=== PATIENT | female | born 1955 ===

== ENCOUNTER 2024-08-23 16:01 | Outpatient (REF) | payer OTHER, SELFPAY ==
--- OUTSIDE RECORDS SUMMARY | 2024-08-23 16:10 | XMS_ITS | Patient Health Record ---
Author Organization [facility] Address [address] [place] [address] Care Team Providers Care Coloring Room Man Name Role Phone SonjaRobsonFritzkelbyShania stock Primary Care Provider Vero ferrocotySurinder Weiss Unavailable [phone] Dania Quiroz Unavailable [phone] Allergies Allergen (clinical drug ingredient) Drug/Non Drug Allergy documented on EMR Reaction Allergy Type Onset Date Status Biaxin Unknown Drug Allergy Active ciprofloxacin Cipro Unknown Drug Allergy Act britta codeine Codeine Unknown Drug Allergy Active Non-steroidal anti-inflammatory agent (FN) NSAIDs Unknown Drug Allergy Active Reason For Referral No Information Medications Medication SIG (Take, Route, Frequency, Duration) Notes Start Date End Date Status traZODone HCl 50 MG 1 tablet at bedtime Orally Once a day Active Symbicort 160-4.5 MCG/ACT 2 puffs Inhala tion Twice a day Active Lisinopril 20 MG 1 tablet Orally twic e a day for 90 days Active Colace 100 MG 1 capsule as needed Orally Once a day Not-Taking Azelastine HCl 137 MCG/SPRAY 1 puff in each nostril Nasally Once a day Not-Taking Abilify 10 MG 1 tablet Orally Once a day Active Fexofenadine HCl 180 MG 1 tablet Swallow whole with water; do not take with fruit juices. Orally Once a day Not-Taking Sodium Chloride 1 GM 1 tablet Orally Twi ce a day for 90 days Active Cyclobenzaprine HCl 5 MG 1 tablet at bed time as needed Orally Once a day Not-Taking Albuterol Sulfate 108 (90 Base) MCG/ACT 1 puff as needed Inhalation every 4 hrs Active Acetaminophen 500 MG 1 capsule as needed Orally every 6 hrs prn Active Flonase Sensimist 27.5 MCG/SPRAY 1 spray in each nostril Nasally Once a day Not-Taking amLODIPine Besylate 5 MG 1 tablet Orally Once a day Active Simvastatin 40 MG 1 tablet in the evening Orally Once a day Not-Taking Ondansetron HCl 4 MG 1 tablet Orally Onc e a day PRN Active Xalatan 0.005 % 1 drop into affected eye in the evening Ophthalmic Once a day Not-Taking Triamcinolone Acetonide 0.5 % 1 application Externally Two times a Week Not-Taking Singulair 10 MG 1 tablet Orally Once a day Active Famotidine 20 MG 1 tablet Orally twic e a day Active Omeprazole 20 MG 1 capsule 30 minutes before morning meal Orally Once a day Not-Taking Depakote 500 MG 2 tablets Orally Onc e a day Active Multivitamin - 1 tablet Orally Once a day Not-Taking fluPHENAZine HCl 5 MG 1 tablet Orally Tw ice a day Active Pepcid 20 MG 1 tablet at bedtime as needed Orally Once a day Not-Taking FeroSul 325 (65 Fe) MG 1 tablet Orally O nce a day Active Pantoprazole Sodium 40 MG 1 tablet Orall y Once a day Not-Taking Lasix 20 MG 1 tablet Orally Twic e a day for 30 days Active Simethicone 80 MG 1 tablet after meals and at bedtime as needed Orally Four times a day Not-Taking Klor-Con M10 10 MEQ 1 tablet with food Orally once a day Active ProAir HFA 108 (90 Base) MCG/ACT 1 puff as needed Inhalation every 4 hrs Not-Brian stock Nystatin 020017 UNIT/GM 1 application Externally Twice a day Active Amlodipine Besylate 5 MG 1 tablet Orally Once a day Active Loratadine 10 MG 1 capsule Orally Onc e a day Not-Taking Glycerin - as directed Not-Dave ing Benztropine Mesylate 0.5 MG 1 tablet Orally Twice a day Active Miconazole Nitrate 200 MG 1 suppository at bedtime Vaginal Once a day Not-Taking Atorvastatin Calcium 40 MG 1 tablet Oral ly Once a day Active Meclizine HCl 12.5 MG 2 tablets as neede d Orally Once a day Not-Taking Social History Tobacco Use: Social History Observation Description Date Details (start date - stop date) Current Smoker NA - NA Tobacco Use/Smoking Question Answer Notes Are you a current smoker Problems Problem Type SNOMED Code ICD Code Onset Dates Problem Status W/U Status Risk Notes Problem Paranoid schizophrenia (64893421) Paranoid schizophrenia (F20.0) Active confirmed Problem Electrolytes abnormal (734763441) Electrolyte abnormality (E87.8) Active confirmed Problem Hyponatremia (96890888) Hyponatremia (E87.1) Active confirmed Problem Essential hypertension (99644281) Essential hypertension (I10) Active confirmed Vital Signs Heart Rate 87 /min 01/02/2024 Blood pressure diastolic 69 mm Hg 01/02/2024 Height 66 in 01/02/2024 Blood pressure systolic 111 mm Hg 01/02/2024 Weight 172.5 lbs 01/02/2024 BMI 27.84 kg/m2 01/02/2024 Encounters Encounter Location Date Provider Diagnosis [facility] [address] [place] [phone] 09/01/2023 Benahili Iboaya Hyponatremia E87.1 ; Essential hypertension I10 ; Electrolyte abnormality E87.8 and Paranoid schizophrenia F20.[address] [facility] [address] [place] [phone] 01/02/2024 Dania Richie Hyponatremia E87.1 ; Essential hypertension I10 ; Electrolyte abnormality E87.8 and Paranoid schizophrenia F20.0 [facility] [address] [place] [phone] 09/01/2023 Benahili Iboaya Essential hypertensi on I10 [facility] [address] [place] [phone] 10/20/2023 Benahili Iboaya Essential hypertensi on I10 [facility] [address] [place] [phone] 11/21/2023 Benahili Iboaya Hyponatremia E87.1 [facility] [address] [place] [phone] 07/30/2024 Benahili Iboaya Assessments Encounter Date Diagnosis (ICD Code) Assessment Notes Treatment Notes Treatment Clinical Notes Section Notes 09/01/2023 Essential hypertension (ICD-10 - I10) 10/20/2023 Essential hypertension (ICD-10 - I10) 11/21/2023 Hyponatremia (ICD-10 - E87.1) 09/01/2023 Hyponatremia (ICD-10 - E87.1) 09/01/23-----No labs were done by the patient. Plan for her to have it done today post appointment. Continue sodium chloride 1 gram BID, FR 48 ounces and 2 gram sodium diet. 05/03/23--Na 133, Cl 94, Co2 32. Continue sodium chloride 1 gram BID, FR 48 ounces and 2 gram sodium diet. 09/15/22--- Na 131, Cl 91, Co2 32. Will continue with NACL 1g BID. Encouraged to follow fluid restriction of no more than 40oz daily. Urine SG 1.005. Patient reports she is drinking the least amount of fluid possible as she constantly has dry mouth. 05/07/22--- Na 133. Cl 93, Co2 36. Will continue with NACL 1g BID. Continue fluid restriction of no more than 40 ounces daily. 04/01/22--- Na 131, will continue with NACL 1g BID. Continue with fluid restriction of no more than 40 ounces daily. Will recheck sodium level in 1 month 03/18/22--Patient denies obtaining lab work. Advised to obtain lab work and will call patient with updated sodium level. Verbalizes understanding. 11/30/21--Patient admits that she has been without sodium for 1 month. Denies fluid restriction. Na 132, Cl 91. Patient advised to contiue to follow 2 gram sodium diet, take sodium chloride 1 gram daily as ordered. Fluid restrition of 48 ounces per day. 09/16/21--Na 136. Continues on Sodium Chloride 1 gram 1 daily. 06/11/21----Na level of 130 Hyponatremia diagnosis with education on restricting his fluid intake to less than 48 ounces a day. Patient also encouraged to increase their dietary solute intake. Serological studies will be performed to further confirm the need for medical management. Plan to initiate treatment with use of sodium chloride 1 g daily. 01/02/2024 Hyponatremia (ICD-10 - E87.1) 01/02/24---Na 134, Cl 92, Co2 37. Continue sodium chloride 1 gram BID, FR 48 ounces and 2 gram sodium diet. 09/01/23-----No labs were done by the patient. Plan for her to have it done today post appointment. Continue sodium chloride 1 gram BID, FR 48 ounces and 2 gram sodium diet. 05/03/23--Na 133, Cl 94, Co2 32. Continue sodium chloride 1 gram BID, FR 48 ounces and 2 gram sodium diet. 09/15/22--- Na 131, Cl 91, Co2 32. Will continue with NACL 1g BID. Encouraged to follow fluid restriction of no more than 40oz daily. Urine SG 1.005. Patient reports she is drinking the least amount of fluid possible as she constantly has dry mouth. 05/07/22--- Na 133. Cl 93, Co2 36. Will continue with NACL 1g BID. Continue fluid restriction of no more than 40 ounces daily. 04/01/22--- Na 131, will continue with NACL 1g BID. Continue with fluid restriction of no more than 40 ounces daily. Will recheck sodium level in 1 month 03/18/22--Patient denies obtaining lab work. Advised to obtain lab work and will call patient with updated sodium level. Verbalizes understanding. 11/30/21--Patient admits that she has been without sodium for 1 month. Denies fluid restriction. Na 132, Cl 91. Patient advised to contiue to follow 2 gram sodium diet, take sodium chloride 1 gram daily as ordered. Fluid restrition of 48 ounces per day. 09/16/21--Na 136. Continues on Sodium Chloride 1 gram 1 daily. 06/11/21----Na level of 130 Hyponatremia diagnosis with education on restricting his fluid intake to less than 48 ounces a day. Patient also encouraged to increase their dietary solute intake. Serological studies will be performed to further confirm the need for medical management. Plan to initiate treatment with use of sodium chloride 1 g daily. 01/02/2024 Essential hypertension (ICD-10 - I10) 01/02/24--- Patient is normotensive in office with readings of 109/70. Patient reports normotensive readings at home. Will continue with lasix 20mg daily, lisinopril 20mg BID and norvasc 5mg daily. 09/01/23____-Noah nt is normotensive in office with readings of 122/82. Patient reports normotensive readings at home. Will continue with Lasix 20mg, Lisinopril 20mg BID and Amlodipine 5mg per her PCP. She has missed several appointments and we discussed extensively her need for better compliance. She admits she will do better in her follow-up appointments. 2.24__In office blood pressure 152/93. Normotensive home blood pressure readings, Continue lasix 20 mg and lisinopril 20 mg twice a day and amlodipine 5mg per her PCP. 09/15/22__- normotensive in office. reports normotensive readings at home. Will continue with lisinopril 20mg daily and lasix 20mg daily. 05/07/22_ _ reports normotensive readings at home ranging from 110-120/60's. Continue lisinopril 20mg daily and lasix 20mg daily. 04/01/22_ _- reports normotensive readings at home. Continue lisinopril 20mg daily and lasix 20mg daily. 11/30/21_ _Patient reports home blood pressure 119/75. Continues on lisinopril 20 mg daily and lasix 20 mg daily. 09/16/21_ _Blood pressure at home 127/77. Continues on lisinopril 20 mg daily and lasix 20 mg BID. Patient education on the significance of management of hypertension, and its effect on sustaining or contributing to the decline in the residual renal function. Goal recommendations of less than 2gms a day sodium diet. Monitor home blood pressure, with goal range of systolic readings of 110 to 130 and diastolic readings of 60 to 80 09/01/2023 Essential hypertension (ICD-10 - I10) 09/01/23-----Noah nt is normotensive in office with readings of 122/82. Patient reports normotensive readings at home. Will continue with Lasix 20mg, Lisinopril 20mg BID and Amlodipine 5mg per her PCP. She has missed several appointments and we discussed extensively her need for better compliance. She admits she will do better in her follow-up appointments. --In office blood pressure 152/93. Normotensive home blood pressure readings, Continue lasix 20 mg and lisinopril 20 mg twice a day and amlodipine 5mg per her PCP. 09/15/22__- normotensive in office. reports normotensive readings at home. Will continue with lisinopril 20mg daily and lasix 20mg daily. 05/07/22_ _ reports normotensive readings at home ranging from 110-120/60's. Continue lisinopril 20mg daily and lasix 20mg daily. 04/01/22_ _- reports normotensive readings at home. Continue lisinopril 20mg daily and lasix 20mg daily. 11/30/21_ _Patient reports home blood pressure 119/75. Continues on lisinopril 20 mg daily and lasix 20 mg daily. 09/16/21_ _Blood pressure at home 127/77. Continues on lisinopril 20 mg daily and lasix 20 mg BID. Patient education on the significance of management of hypertension, and its effect on sustaining or contributing to the decline in the residual renal function. Goal recommendations of less than 2gms a day sodium diet. Monitor home blood pressure, with goal range of systolic readings of 110 to 130 and diastolic readings of 60 to 80 09/01/2023 Electrolyte abnormality (ICD-10 - E87.8) 09/01/23-----She amol have labs done today. Continue sodium chloride 1 gram BID. FR 48 ounces and Magnesium gluconate 500mg daily. 05/03/23--Na 133, K+ 3.9, Cl 94, Co2 32, Ca 9.2, Phos 4.7, Mg 1.5 and uric acid 2.6. Continue sodium chloride 1 gram BID. FR 48 ounces and start Magnesium gluconate 500mg daily. 09/15/22--- Mg 1.8, Na 131, K 4.0, Cl 91, Co2 32, Ca 9.3, Albumin 4.3, Phos 3.6, Uric acid 2.4. Will continue with NACL 1g BID and lasix 20mg daily. 05/07/22--- Na 133, K 4.3, Co2 36, Ca 9.1, Albumin 4.2, Phos 4.0, Uric acid 2.8, Mg 1.6. Will continue with NACL 1g BID and lasix 20mg daily. 04/01/22--- Na 131, K 3.8, Co2 33, Ca 9.7, Albumin 4.4, Phos 3.6, Mg 1.6, Phos 3.6. Will continue NACL 1g BID 11/30/21--K+ 3.9, Na 132, Cl 91, Ca 10.2, Phos 3.4, Mg 1.9. Uric acid 2.9. Conitnue sodium chloride 1 gram daily. 09/16/21--K+ 4.2. Will continue to monitor. Hypokalemia --K level of 3.4. Hypokalemia history with dietary education on high potassium diet that the patient can consume. A printout was provided to the patient along with the education. 01/02/2024 Electrolyte abnormality (ICD-10 - E87.8) 01/02/24---Na 134, K+ 4.2, Cl 92, Co2 37, Ca 9.2, Phos 4.0, Mg 1.6 and uric acid 2.4. Continue sodium chloride 1 gram BID. FR 48 ounces and start Magnesium gluconate 500mg daily. 09/01/23-----She amol have labs done today. Continue sodium chloride 1 gram BID. FR 48 ounces and Magnesium gluconate 500mg daily. 05/03/23--Na 133, K+ 3.9, Cl 94, Co2 32, Ca 9.2, Phos 4.7, Mg 1.5 and uric acid 2.6. Continue sodium chloride 1 gram BID. FR 48 ounces and start Magnesium gluconate 500mg daily. 09/15/22--- Mg 1.8, Na 131, K 4.0, Cl 91, Co2 32, Ca 9.3, Albumin 4.3, Phos 3.6, Uric acid 2.4. Will continue with NACL 1g BID and lasix 20mg daily. 05/07/22--- Na 133, K 4.3, Co2 36, Ca 9.1, Albumin 4.2, Phos 4.0, Uric acid 2.8, Mg 1.6. Will continue with NACL 1g BID and lasix 20mg daily. 04/01/22--- Na 131, K 3.8, Co2 33, Ca 9.7, Albumin 4.4, Phos 3.6, Mg 1.6, Phos 3.6. Will continue NACL 1g BID 11/30/21--K+ 3.9, Na 132, Cl 91, Ca 10.2, Phos 3.4, Mg 1.9. Uric acid 2.9. Conitnue sodium chloride 1 gram daily. 09/16/21--K+ 4.2. Will continue to monitor. Hypokalemia --K level of 3.4. Hypokalemia history with dietary education on high potassium diet that the patient can consume. A printout was provided to the patient along with the education. 09/01/2023 Paranoid schizophrenia (ICD-10 - F20.0) 05/03/2023---Recomm endation for medication adjustment to reflect patient's creatinine clearance. Monitor patient's sodium level for hyponatremia effect from excessive fluid intake which could also result in dilution of the sodium 01/02/2024 Paranoid schizophrenia (ICD-10 - F20.0) 05/03/2023---Recomm endation for medication adjustment to reflect patient's creatinine clearance. Monitor patient's sodium level for hyponatremia effect from excessive fluid intake which could also result in dilution of the sodium Plan Of Treatment Pending Test Test Name Order Date Phosphorus, Serum 11/30/2021 Phosphorus, Serum 09/16/2021 Phosphorus, Serum 06/11/2021 Phosphorus, Serum 01/02/2024 Phosphorus, Serum 09/01/2023 Phosphorus, Serum 05/03/2023 Phosphorus, Serum 09/15/2022 Phosphorus, Serum 05/07/2022 Phosphorus, Serum 04/01/2022 Phosphorus, Serum 02/01/2022 Phosphorus, Serum 08/24/2021 Uric Acid, Serum 08/24/2021 Uric Acid, Serum 04/01/2022 Uric Acid, Serum 05/07/2022 Uric Acid, Serum 09/15/2022 Uric Acid, Serum 01/02/2024 Uric Acid, Serum 05/03/2023 Uric Acid, Serum 09/01/2023 Uric Acid, Serum 06/11/2021 Uric Acid, Serum 09/16/2021 Uric Acid, Serum 11/30/2021 Potassium, Serum 06/11/2021 Magnesium, Serum 06/11/2021 Magnesium, Serum 01/02/2024 Magnesium, Serum 11/30/2021 Magnesium, Serum 09/16/2021 Magnesium, Serum 05/03/2023 Magnesium, Serum 09/15/2022 Magnesium, Serum 05/07/2022 Magnesium, Serum 02/01/2022 Magnesium, Serum 04/01/2022 Magnesium, Serum 08/24/2021 TSH 06/11/2021 PTH, Intact 09/01/2023 Basic Metabolic Panel (8) 08/24/2021 Renal Panel (10) 02/01/2022 Renal Panel (10) 04/01/2022 Renal Panel (10) 05/03/2023 Renal Panel (10) 01/02/2024 Renal Panel (10) 05/07/2022 Renal Panel (10) 09/15/2022 Renal Panel (10) 09/16/2021 Renal Panel (10) 11/30/2021 Renal Panel (10) 06/11/2021 CBC 01/02/2024 CBC 11/30/2021 CBC 09/16/2021 CBC 09/15/2022 CBC 05/07/2022 CBC 05/03/2023 CBC 09/01/2023 CBC 04/01/2022 CBC 08/24/2021 Ultrasound : Kidneys and Bladder 022 Urine-spot sodium 06/11/2021 urine protein 06/11/2021 urine creatinine 06/11/2021 RENAL PANEL 09/01/2023 Magnesium Level 09/01/2023 Parathyroid Hormone Intact 05/03/2023 Parathyroid Hormone Intact 09/15/2022 Parathyroid Hormone Intact 01/02/2024 Parathyroid Hormone Intact 09/16/2021 Parathyroid Hormone Intact 08/24/2021 Urinalysis with Culture if indicated Urinalysis with Culture if indicated Urinalysis with Culture if indicated 08/2021 Urinalysis with Culture if indicated Urinalysis with Culture if indicated Urinalysis with Culture if indicated Urinalysis with Culture if indicated 07/2022 Urinalysis with Culture if indicated Urinalysis with Culture if indicated Urine Protein Creatinine Ratio 4 Urine Protein Creatinine Ratio 3 Urine Protein Creatinine Ratio 4 Urine Protein Creatinine Ratio 3 Urine Protein Creatinine Ratio 3 Urine Protein Creatinine Ratio 4 Urine Protein Creatinine Ratio 2 Urine Protein Creatinine Ratio 2 Urine Protein Creatinine Ratio 2 Cystatin C with Estimated GFR,S-[place] Insurance Providers Payer Name Payer Address Payer Phone Subscriber Number Group Number Insured Name Patient Relationship to Insured Coverage Start Date Coverage End Date [employer] [address] [place] [address] [id number] Katey Beard Self - patient is the insured Medical (General) History Medical History History ICD Code Iron deficiency Bipolar affective disorder Anxiety Disorder of joint Chronic constipation Chronic frontal sinusitis COPD Depression Dyslipidemia Gastroesophageal reflux disease Open-angle Glaucoma Headaches Hypertension Hyperlipidemia Insomnia Loose stools Low back pain Asthma Urinary incontinence Edema Allergic rhinitis Hyponatremia Psoriasis Pelvic pain Generalized weakness Left Ovarian Cyst Breast calcification, left Vaginal dryness Borderline Diabetes h/o DVT in legs Surgical History Surgery Date(Month/Year) partial hysterectomy bilateral meniscus repair tubal ligation appendectomy dental surgery Hospitalization History Reason Date(Month/Year) Mental Health 02/03; 04/06 surgery
[2024-08-23 16:35] LABS: Anion Gap 6.4; BUN Creatinine Ratio 24.2; Calcium 9.3 mg/dL (8.5-10.1); Carbon Dioxide 36.8 mmol/L (21.0-32.0); Chloride 95 mmol/L (98-107); Estimated GFR (African America >60 (>=60 mL/min/1.73m^2); Estimated GFR (Non-African Ame >60 (>=60 mL/min/1.73m^2); Glucose 76 mg/dL (74-106); Potassium 4.2 mmol/L (3.5-5.1); Sodium 134 mmol/L (136-145)
== END 2024-08-23 16:02 | disposition home or self-care (01) ==
LOC: LAB 16:01
PROVIDERS: PCP Internal Medicine; Visit Provider Internal Medicine
DX: F20.9 Schizophrenia, unspecified (principal)
CPT/HCPCS: 36415; 80048